=== PATIENT | female | born 1970 | race Asian ===

== ENCOUNTER 2019-07-10 11:41 | Outpatient (CLI) | payer OTHER | END 2019-07-10 11:45 | disposition short-term general hospital (02) | LOC: AMB 11:41 | DX: G24.9 Dystonia, unspecified (principal); R51 Headache | CPT/HCPCS: A0425; A0429 ==

== ENCOUNTER 2019-07-10 11:52 | Emergency (ER) | payer OTHER ==
[~2019-07-10] VITALS: Ht 162.6 cm; Wt 65.8 kg
[2019-07-10 12:43] LABS: POTASSIUM 4.4 mmol/L (3.6-5.2); SODIUM 142 mmol/L (136-145)
[2019-07-10 12:48] LABS: PLATELET COUNT 209 K/uL (152-353)
[2019-07-10 13:00] LABS: PARTIAL THROMBOPLASTIN TIME 21.2 SECONDS (24.5-33.6)
[2019-07-10 16:00] VITALS: BP 144/89; TEMP 97.8
== END 2019-07-10 15:59 | disposition short-term general hospital (02) ==
LOC: ED 11:52
PROVIDERS: Student in an Organized Health Care Education/Training Program
DX: R46.4 Slowness and poor responsiveness (principal); R25.8 Other abnormal involuntary movements; Z98.890 Other specified postprocedural states
CPT/HCPCS: 80053; 80307; 80329; 81000; 82140; 83735; 84443; 84484; 85027; 85610; 85730; 93005; 96360; 96375; 96376; 99284; J2060

== ENCOUNTER 2019-07-10 16:06 | Outpatient (CLI) | payer OTHER | END 2019-07-10 17:33 | disposition short-term general hospital (02) | LOC: AMB 16:06 | DX: R46.4 Slowness and poor responsiveness (principal); R25.8 Other abnormal involuntary movements | CPT/HCPCS: A0425; A0429 ==